=== PATIENT | male | born 1985 | race Caucasian/White ===

== ENCOUNTER 2019-07-02 20:26 | Emergency (ER) | payer BC, OTHER ==
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
[2019-07-02 21:04] VITALS: BP 124/67; PULSE 77
--- NOTE | 2019-07-02 21:31 | CR ---
Indication: Crush injury. Technique: Three views of the right hand were obtained. Comparison: None Findings: No acute fracture subluxation is identified. The joint spaces are well maintained. Impression: No acute fracture. Dictated by Jennyfer Zambrano MD @ Jul 02 2019 9:25PM Signed by Dr. Jennyfer Zambrano @ Jul 02 2019 9:29PM
== END 2019-07-02 22:01 | disposition home or self-care (01) ==
LOC: MW.ED 20:26
DX: S60.031A Contusion of right middle finger without damage to nail, initial encounter (principal); S60.041A Contusion of right ring finger without damage to nail, initial encounter; V53.5XXA Driver of pick-up truck or van injured in collision with car, pick-up truck or van in traffic accident, initial encounter
CPT/HCPCS: 73130-26-RT; 73130-RT; 99283-25